=== PATIENT | female | born 1935 | race Caucasian/White ===

== ENCOUNTER 2021-04-19 08:21 | Emergency (ER) | payer MEDICARE ==
[~2021-04-19] VITALS: Ht 152.4 cm; Wt 76.4 kg
[2021-04-19] MEDS ORDERED: VITA200031 PO (08:42)
[2021-04-19] MEDS ORDERED: ATEN25TA PO (08:42)
[2021-04-19] MEDS ORDERED: ASPI81CH33 PO (08:42)
[2021-04-19] MEDS ORDERED: KRIL1CAP6 PO (08:42)
[2021-04-19] MEDS ORDERED: LEVO125T4 PO (08:42)
[2021-04-19] MEDS ORDERED: LOSA50TA28 PO (08:42)
[2021-04-19 09:47] LABS: BASO # 0.1 10^3/uL (0.0-0.2); BASO % 0.9 % (0.0-1.0); EOS # 0.1 10^3/uL (0.0-0.5); EOS % 1.1 % (0.0-3.0); HEMATOCRIT 42.2 % (36.0-47.0); HEMOGLOBIN 13.6 g/dl (12.0-15.5); LYMPH # 2.3 10^3/uL (1.5-5.0); LYMPH % 30.5 % (24.0-44.0); MEAN CORPUSCULAR HEMOGLOBIN 29.8 pg (27.0-33.0); MEAN CORPUSCULAR HGB CONC 32.2 g/dl (32.0-36.5); MEAN CORPUSCULAR VOLUME 92.3 fl (80.0-96.0); MONO # 0.5 10^3/uL (0.0-0.8); MONO % 6.5 % (2.0-8.0); NEUTROPHILS # 4.5 10^3/uL (1.5-8.5); NEUTROPHILS % 60.5 % (36.0-66.0); PLATELET COUNT, AUTOMATED 215 10^3/uL (150-450); RED BLOOD COUNT 4.57 10^6/uL (4.00-5.40); WHITE BLOOD COUNT 7.4 10^3/uL (4.0-10.0)
[2021-04-19 09:59] LABS: ALBUMIN 3.4 GM/DL (3.2-5.2); ALT/SGPT 22 U/L (12-78); BILIRUBIN,DIRECT 0.2 MG/DL (0.0-0.2); BILIRUBIN,TOTAL 0.6 MG/DL (0.2-1.0); BLOOD UREA NITROGEN 25 MG/DL (7-18); CALCIUM LEVEL 9.3 MG/DL (8.8-10.2); CARBON DIOXIDE LEVEL 31 MEQ/L (21-32); CHLORIDE LEVEL 109 MEQ/L (98-107); CREATININE FOR GFR 0.84 MG/DL (0.55-1.30); FREE T4 1.42 NG/DL (0.76-1.46); GLOMERULAR FILTRATION RATE > 60.0 (>32); GLUCOSE, FASTING 92 MG/DL (70-100); LIPASE 140 U/L (73-393); MAGNESIUM LEVEL 2.1 MG/DL (1.8-2.4); POTASSIUM SERUM 4.1 MEQ/L (3.5-5.1); SODIUM LEVEL 144 MEQ/L (136-145); TOTAL PROTEIN 6.9 GM/DL (6.4-8.2)
[2021-04-19] MEDS ORDERED: HOLTER MONITOR (14:52)
[2021-04-19 15:01] VITALS: BP 144/107
== END 2021-04-19 15:44 | disposition home or self-care (01) ==
LOC: M ED 08:21 → EDBD 08:21 → M ED 15:44
DX: G45.9 Transient cerebral ischemic attack, unspecified (principal); R00.2 Palpitations; E03.9 Hypothyroidism, unspecified; I10 Essential (primary) hypertension; Z79.82 Long term (current) use of aspirin; Z79.899 Other long term (current) drug therapy

== ENCOUNTER → 2021-04-26 | Outpatient (CLI) | payer MEDICARE ==
[~2021-04-26] MED LIST: ASPI81CH33 PO; ATEN25TA PO; HOLTER MONITOR; KRIL1CAP6 PO; LEVO125T4 PO; LOSA50TA28 PO; VITA200031 PO
== END ==
LOC: M EKG 09:54
PROVIDERS: ATTEND Emergency Medicine
DX: R00.2 Palpitations (principal)

== ENCOUNTER 2022-03-12 20:21 | Emergency (ER) | payer MEDICARE ==
[~2022-03-12] VITALS: Ht 152.4 cm; Wt 78.6 kg
[2022-03-13 00:01] VITALS: BP 173/73
== END 2022-03-13 00:33 | disposition home or self-care (01) ==
LOC: M ED 20:21
DX: S09.90XA Unspecified injury of head, initial encounter (principal); S40.011A Contusion of right shoulder, initial encounter; S50.01XA Contusion of right elbow, initial encounter; W00.0XXA Fall on same level due to ice and snow, initial encounter; I10 Essential (primary) hypertension; E03.9 Hypothyroidism, unspecified; Z86.73 Personal history of transient ischemic attack (TIA), and cerebral infarction without residual deficits; Z88.8 Allergy status to other drugs, medicaments and biological substances; Z79.01 Long term (current) use of anticoagulants; Z79.811 Long term (current) use of aromatase inhibitors; Z79.82 Long term (current) use of aspirin; Z79.899 Other long term (current) drug therapy

== ENCOUNTER → 2023-05-18 | Outpatient (CLI) | payer MEDICARE ==
[2023-05-18 10:10] VITALS: TEMP 98
[2023-05-18 11:14] LABS: LDH LACTATE DEHYDROGENASE 230 U/L (120-246)
[2023-05-18 11:15] LABS: ALKALINE PHOSPHATASE 87 U/L (46-116); ALT/SGPT 14 U/L (7.0-40); AST/SGOT 22 U/L (<34); BILIRUBIN,TOTAL 0.7 MG/DL (0.3-1.2); BLOOD UREA NITROGEN 17 MG/DL (9-23); CALCIUM LEVEL 8.5 MG/DL (8.3-10.6); CARBON DIOXIDE LEVEL 31 MMOL/L (20-31); CHLORIDE LEVEL 103 MMOL/L (98-107); CREATININE FOR GFR 0.79 MG/DL (0.55-1.30); GLOMERULAR FILTRATION RATE > 60.0 (>32); GLUCOSE, FASTING 89 MG/DL (74-106); POTASSIUM SERUM 4.3 MMOL/L (3.5-5.1); SODIUM LEVEL 138 MMOL/L (136-145)
[2023-05-18 11:44] LABS: PH BODY FLUID 7.519 UNITS (NOT ESTABLISHED); SOURCE, BODY FLUID pH PLEURAL
[2023-05-18 11:49] LABS: PLEURAL FL COLOR RED (COLORLESS); SOURCE, BODY FLUID PLEURAL
[2023-05-18 11:50] LABS: APPEARANCE, BODY FLUID CLOUDY (CLEAR)
[2023-05-18 12:05] LABS: SOURCE, BODY FLUID ALBUMIN PLEURAL
[2023-05-18 12:10] LABS: SOURCE, BODY FLUID GLUCOSE PLEURAL
[2023-05-18 12:11] LABS: LDH, BODY FLUID 361 U/L (NOT ESTABLISHED); SOURCE, BODY FLUID LDH PLEURAL
[2023-05-18 12:12] LABS: AMYLASE, BODY FLUID 63 U/L (NOT ESTABLISHED); SOURCE, BODY FLUID AMYLASE PLEURAL; SOURCE, BODY FLUID TOT PROTEIN PLEURAL; TOTAL PROTEIN, BODY FLUID 3.8 G/DL (NOT ESTABLISHED)
[2023-05-18 12:45] VITALS: BP 143/82; O2SAT 96
== END ==
LOC: M IRPRO 09:53
PROVIDERS: ATTEND Internal Medicine Pulmonary Disease
DX: J90 Pleural effusion, not elsewhere classified (principal)

== ENCOUNTER → 2023-08-28 | Outpatient (CLI) | payer MEDICARE ==
[~2023-08-28] MED LIST changes: +ISOVUE-370 76% 100ML VIAL ONE
== END ==
LOC: M PLAIMG 10:46
PROVIDERS: ATTEND Nurse Practitioner Family
DX: J90 Pleural effusion, not elsewhere classified (principal)
CPT/HCPCS: 71260; Q9967

== ENCOUNTER → 2023-09-18 | Outpatient (CLI) | payer MEDICARE ==
[~2023-09-18] MED LIST changes: -ISOVUE-370 76% 100ML VIAL ONE
== END ==
LOC: M PLARAD 13:15
PROVIDERS: ATTEND Thoracic Surgery (Cardiothoracic Vascular Surgery)
DX: J90 Pleural effusion, not elsewhere classified (principal)
CPT/HCPCS: 78815; A9552

== ENCOUNTER → 2023-10-05 | Outpatient (CLI) | payer MEDICARE ==
[~2023-10-05] MED LIST changes: +ALBU8.5H; +AMIO200T49; +COLA100C5 PO; +ELIQ5TAB; +GABA-1171; +HYDR-3715 PO; +HYDR-4571 PO; +LIDO30CR18 TOP; +MORP15TA2 PO; +MS C15TA8 PO; +MS C30TA6 PO; +OXYC-517; +PROC5TAB57 PO; +TRAM50TA2 PO; +ZYPR2.5T2 PO
== END ==
LOC: M ONCR 14:42
PROVIDERS: ATTEND General Practice
DX: J90 Pleural effusion, not elsewhere classified (principal); M54.6 Pain in thoracic spine; Z77.098 Contact with and (suspected) exposure to other hazardous, chiefly nonmedicinal, chemicals; Z79.82 Long term (current) use of aspirin; Z79.899 Other long term (current) drug therapy; Z80.1 Family history of malignant neoplasm of trachea, bronchus and lung; Z80.7 Family history of other malignant neoplasms of lymphoid, hematopoietic and related tissues; Z88.8 Allergy status to other drugs, medicaments and biological substances; Z90.49 Acquired absence of other specified parts of digestive tract; Z98.51 Tubal ligation status

== ENCOUNTER 2023-10-15 14:20 | Outpatient (RCR) | payer MEDICARE ==
[~2023-10-15 14:20] MED LIST changes: -MORP15TA2 PO; -MS C30TA6 PO
[2023-10-16] MEDS ORDERED: MS C30TA6 PO (07:34)
[2023-10-16] MEDS ORDERED: MORP15TA2 PO (07:37)
[2023-10-22] MEDS ORDERED: MS C15TA8 PO (13:52)
[2023-10-29] MEDS ORDERED: ZYPR2.5T2 PO (08:25)
[2023-10-29] MEDS ORDERED: PROC5TAB57 PO (08:27)
== END 2023-10-24 ==
LOC: M ONCR 14:20
PROVIDERS: ATTEND General Practice
DX: Z51.0 Encounter for antineoplastic radiation therapy (principal); C45.0 Mesothelioma of pleura

== ENCOUNTER → 2023-10-15 | Outpatient (CLI) | payer MEDICARE ==
[~2023-10-15] MED LIST changes: -LIDO30CR18 TOP; -MS C15TA8 PO; -PROC5TAB57 PO; -ZYPR2.5T2 PO
[2023-10-15 17:57] LABS: BASO # 0.1 10^3/uL (0.0-0.2); BASO % 0.8 % (0.0-1.0); EOS # 0.1 10^3/uL (0.0-0.5); EOS % 0.9 % (0.0-3.0); HEMATOCRIT 38.5 % (36.0-47.0); HEMOGLOBIN 12.1 g/dl (12.0-15.5); LYMPH # 2.1 10^3/uL (1.5-5.0); LYMPH % 23.3 % (24.0-44.0); MEAN CORPUSCULAR HEMOGLOBIN 28.1 pg (27.0-33.0); MEAN CORPUSCULAR HGB CONC 31.4 g/dl (32.0-36.5); MEAN CORPUSCULAR VOLUME 89.3 fl (80.0-96.0); MONO # 0.8 10^3/uL (0.0-0.8); MONO % 8.5 % (2.0-8.0); NEUTROPHILS # 6.1 10^3/uL (1.5-8.5); NEUTROPHILS % 66.1 % (36.0-66.0); PLATELET COUNT, AUTOMATED 316 10^3/uL (150-450); RED BLOOD COUNT 4.31 10^6/uL (4.00-5.40); WHITE BLOOD COUNT 9.2 10^3/uL (4.0-10.0)
[2023-10-15 18:33] LABS: INR 1.26; PROTHROMBIN TIME 15.4 SECONDS (12.5-14.5)
== END ==
LOC: M LAB 17:06
PROVIDERS: ATTEND Internal Medicine Hematology & Oncology
DX: J94.9 Pleural condition, unspecified (principal)

== ENCOUNTER → 2023-10-24 | Outpatient (CLI) | payer MEDICARE ==
[~2023-10-24] MED LIST changes: +LIDOCAINE 1% MDV 20ML VIAL As Ordered ONE; +MIDAZOLAM INJ 2MG/2ML VIAL As Ordered ONE; +MORP15TA2 PO; +MS C15TA8 PO; +MS C30TA6 PO; +ceFAZolin 2 GM/D5W 50 ML IV BAG As Ordered ONE; +ceFAZolin SOD 2 GM in IV 1 EA IV ONE; +fentaNYL 100 MCG/2 ML INJECTION As Ordered ONE
[2023-10-24 07:10] VITALS: TEMP 98.4
[2023-10-24 09:04] VITALS: BP 127/61; O2SAT 95
== END ==
LOC: M IRPRO 06:54
PROVIDERS: ATTEND Internal Medicine Hematology & Oncology
DX: R91.8 Other nonspecific abnormal finding of lung field (principal)
CPT/HCPCS: 36561; 99152; 99153; C1769; C1894; J0690; J2250; J3010

== ENCOUNTER 2023-11-08 09:14 | Outpatient (RCR) | payer MEDICARE ==
[~2023-11-08 09:14] MED LIST changes: +LIDO30CR18 TOP; -LIDOCAINE 1% MDV 20ML VIAL As Ordered ONE; -MIDAZOLAM INJ 2MG/2ML VIAL As Ordered ONE; +PROC5TAB57 PO; +ZYPR2.5T2 PO; -ceFAZolin 2 GM/D5W 50 ML IV BAG As Ordered ONE; -ceFAZolin SOD 2 GM in IV 1 EA IV ONE; -fentaNYL 100 MCG/2 ML INJECTION As Ordered ONE
[2023-11-12] MEDS ORDERED: POTA-151 PO (15:26)
[2023-11-12] MEDS ORDERED: MEGE40SU6 PO (15:32)
[2023-11-27] MEDS ORDERED: HALO0.052 TOP (13:52)
[2023-11-27] MEDS ORDERED: FURO40TA2 PO (13:55)
== END 2023-11-24 ==
LOC: M ONCR 09:14
PROVIDERS: ATTEND General Practice
DX: Z51.0 Encounter for antineoplastic radiation therapy (principal); C45.0 Mesothelioma of pleura

== ENCOUNTER → 2023-12-04 | Outpatient (CLI) | payer MEDICARE ==
[~2023-12-04] MED LIST changes: +FURO40TA2 PO; +HALO0.052 TOP; +MEGE40SU6 PO; +POTA-151 PO
== END ==
LOC: M CARPUL 12:42
PROVIDERS: ATTEND Internal Medicine Hematology & Oncology
DX: I51.7 Cardiomegaly (principal); I50.30 Unspecified diastolic (congestive) heart failure; I35.8 Other nonrheumatic aortic valve disorders; I27.20 Pulmonary hypertension, unspecified; I37.1 Nonrheumatic pulmonary valve insufficiency; I36.1 Nonrheumatic tricuspid (valve) insufficiency

== ENCOUNTER → 2024-01-22 | Outpatient (CLI) | payer MEDICARE ==
[~2024-01-22] MED LIST changes: -AMIO200T49; +AMIO200T49 PO; +B-12100010 PO; +BACTDSTA; -ELIQ5TAB; +ELIQ5TAB PO; +FOLI800C PO; -GABA-1171; +GABA-1171 PO; +MUCI600T31 PO; +OMEP1CAP73 PO; +PRED20TA PO; +SPIR-10 PO
== END ==
LOC: M PLAIMG 09:46
PROVIDERS: ATTEND Internal Medicine Pulmonary Disease
DX: J84.9 Interstitial pulmonary disease, unspecified (principal)

== ENCOUNTER → 2024-02-08 | Outpatient (CLI) | payer MEDICARE ==
[~2024-02-08] MED LIST changes: +CHOL125C6 PO; -HALO0.052 TOP; +HALO0.056 TOP; +MAGN400T2 PO; +OCUVCAP PO; +SPIR-10
== END ==
LOC: M ONCR 09:35
PROVIDERS: ATTEND General Practice
DX: C45.0 Mesothelioma of pleura (principal); J70.0 Acute pulmonary manifestations due to radiation; W88.8XXA Exposure to other ionizing radiation, initial encounter; Z57.2 Occupational exposure to dust; Z79.52 Long term (current) use of systemic steroids; Z79.01 Long term (current) use of anticoagulants; Z79.620 Long term (current) use of immunosuppressive biologic; Z79.890 Hormone replacement therapy; Z88.8 Allergy status to other drugs, medicaments and biological substances; Z92.3 Personal history of irradiation; Z99.81 Dependence on supplemental oxygen

== ENCOUNTER → 2024-03-03 | Outpatient (CLI) | payer MEDICARE | LOC: M PLARAD 09:29 | PROVIDERS: ATTEND Internal Medicine Medical Oncology | DX: C45.0 Mesothelioma of pleura (principal) | CPT/HCPCS: 78815; A9552 ==

== ENCOUNTER 2024-03-15 09:28 | Inpatient (IN) | payer MEDICARE ==
[~2024-03-15] VITALS: Ht 152.4 cm; Wt 70.0 kg
[2024-03-15] MEDS: atenoloL 25 MG TAB PO SCH (09:00)
[~2024-03-15 09:28] MED LIST changes: +FLEC25TA PO; +LEVO150T7 PO; +PRED10TA2 PO; -SPIR-10
[2024-03-15 10:37] LABS: BASO % 0.5 % (0.0-1.0); EOS % 0.5 % (0.0-3.0); HEMOGLOBIN 10.4 g/dl (12.0-15.5); LYMPH # 1.3 10^3/uL (1.5-5.0); LYMPH % 17.1 % (24.0-44.0); MEAN CORPUSCULAR HEMOGLOBIN 30.8 pg (27.0-33.0); MEAN CORPUSCULAR HGB CONC 32.5 g/dl (32.0-36.5); MEAN CORPUSCULAR VOLUME 94.7 fl (80.0-96.0); MONO # 0.6 10^3/uL (0.0-0.8); MONO % 7.2 % (2.0-8.0); NEUTROPHILS # 5.5 10^3/uL (1.5-8.5); NEUTROPHILS % 72.3 % (36.0-66.0); PLATELET COUNT, AUTOMATED 163 10^3/uL (150-450); RED BLOOD COUNT 3.38 10^6/uL (4.00-5.40); WHITE BLOOD COUNT 7.7 10^3/uL (4.0-10.0)
[2024-03-15 10:39] LABS: ABG BASE EXCESS 1.5 (-2.0-2.0); ABG HCO3 24.8 MMOL/L (22.0-26.0); ABG O2 SATURATION 98.1 % (95.0-99.0); ABG PARTIAL PRESSURE CO2 34.2 mmHg (35.0-45.0); ABG PARTIAL PRESSURE O2 112.1 mmHg (75.0-100.0); ABG STANDARD HCO3 25.9 MMOL/L. (22.0-26.0); ABG TOTAL CO2 25.8 MMOL/L (23.0-31.0); ABG pH (ARTERIAL) 7.478 UNITS (7.350-7.450)
[2024-03-15] MEDS: NS 500 ML IV ONE (10:39)
[2024-03-15 10:49] LABS: INR 1.39; PARTIAL THROMBOPLASTIN TIME 32.3 SECONDS (24.8-34.2); PROTHROMBIN TIME 17.3 SECONDS (12.5-14.5)
[2024-03-15 10:52] LABS: CK-MB VALUE MASS < 1.0 NG/ML (<3.6)
[2024-03-15 10:56] LABS: FREE T4 1.61 NG/DL (0.89-1.76)
[2024-03-15 11:03] LABS: BLOOD UREA NITROGEN 34 MG/DL (9-23); CALCIUM LEVEL 7.6 MG/DL (8.3-10.6); CARBON DIOXIDE LEVEL 28 MMOL/L (20-31); CHLORIDE LEVEL 102 MMOL/L (98-107); CPK CREATINE PHOSPHOKINASE 27 U/L (34-145); CREATININE FOR GFR 1.11 MG/DL (0.55-1.30); GLOMERULAR FILTRATION RATE 49.6 (>32); GLUCOSE, FASTING 79 MG/DL (74-106); MAGNESIUM LEVEL 1.9 MG/DL (1.8-2.4); POTASSIUM SERUM 4.9 MMOL/L (3.5-5.1); SODIUM LEVEL 135 MMOL/L (136-145)
[2024-03-15 12:06] LABS: MAGNESIUM LEVEL 1.9 MG/DL (1.8-2.4)
[2024-03-15 12:08] LABS: CK-MB VALUE MASS < 1.0 NG/ML (<3.6)
[2024-03-15 12:17] LABS: CPK CREATINE PHOSPHOKINASE 29 U/L (34-145); MB/CK RELATIVE INDEX 3.44 (< OR =4)
[2024-03-15] MEDS ORDERED: CALCCAP4 PO (13:06)
[2024-03-15] MEDS ORDERED: VITAD1000T PO (13:06)
[2024-03-15] MEDS ORDERED: PRED5TA PO (13:16)
[2024-03-15] MEDS ORDERED: HOME MED LIST COMPLETE! XX SCH (13:20)
[2024-03-15] MEDS: fentaNYL 100 MCG/2 ML INJECTION IV PRN (13:23)
[2024-03-15] MEDS: MORPHINE 2 MG/ML 1ML VIAL IV PRN (15:29)
[2024-03-15 15:45] VITALS: BP 120/58; TEMP 101.8; O2SAT 98
[2024-03-15] MEDS ORDERED: ACETAMINOPHEN 500 MG TAB PO SCH (16:00)
[2024-03-15 16:37] LABS: PROCALCITONIN 0.16 ng/ml
[2024-03-15] MEDS: predniSONE 10MG TAB PO ONE (16:47)
[2024-03-15] MEDS: ACETAMINOPHEN *IV* 1,000 MG in IV 1 EA IV ONE (16:47)
[2024-03-15] MEDS: OMEPRAZOLE 20MG CAP PO SCH (17:25)
[2024-03-15] MEDS: LEVOTHYROXINE 150MCG TABLET (0.15MG) PO SCH (17:25)
[2024-03-15] MEDS: FLECAINIDE 50MG TABLET PO SCH (17:31)
[2024-03-15 18:32] VITALS: TEMP 100.2
[2024-03-15 19:49] VITALS: BP 102/54; TEMP 98.4; O2SAT 97
[2024-03-15] MEDS: GABAPENTIN 100 MG CAP PO SCH (20:14)
[2024-03-15] MEDS: ENOXAPARIN 40MG/0.4ML SYRINGE (J1650 PER 10MG) SC ONE (20:14)
[2024-03-15 23:39] VITALS: BP 104/57; TEMP 97.6; O2SAT 96
[2024-03-16] VITALS (11 sets, daily range): BP systolic 100–145; BP diastolic 50–80; TEMP 97–97.9; O2SAT 95–100
[2024-03-16 05:31] LABS: HEMATOCRIT 32.5 % (36.0-47.0); HEMOGLOBIN 10.7 g/dl (12.0-15.5); MEAN CORPUSCULAR HEMOGLOBIN 31.4 pg (27.0-33.0); MEAN CORPUSCULAR HGB CONC 32.9 g/dl (32.0-36.5); MEAN CORPUSCULAR VOLUME 95.3 fl (80.0-96.0); PLATELET COUNT, AUTOMATED 164 10^3/uL (150-450); RED BLOOD COUNT 3.41 10^6/uL (4.00-5.40); WHITE BLOOD COUNT 6.7 10^3/uL (4.0-10.0)
[2024-03-16 05:53] LABS: CALCIUM LEVEL 8.5 MG/DL (8.3-10.6); CREATININE FOR GFR 1.18 MG/DL (0.55-1.30); GLOMERULAR FILTRATION RATE 46.2 (>32); POTASSIUM SERUM 5.8 MMOL/L (3.5-5.1)
[2024-03-16] MEDS ORDERED: fentaNYL 100 MCG/2 ML INJECTION As Ordered ONE (07:09)
[2024-03-16] MEDS ORDERED: LIDOCAINE 2% 100MG/5ML SDV (FOR ANES.) As Ordered ONE (07:09)
[2024-03-16] MEDS ORDERED: propofoL 200 MG/20 ML VIAL As Ordered ONE (07:09)
[2024-03-16] MEDS ORDERED: ONDANSETRON 4MG 2ML VIAL As Ordered ONE (07:09)
[2024-03-16] MEDS ORDERED: KETOROLAC 60MG 2ML VIAL As Ordered ONE (07:09)
[2024-03-16] MEDS ORDERED: ACETAMINOPHEN 1000MG/100ML IV BAG As Ordered ONE (07:10)
[2024-03-16] MEDS ORDERED: HYDROMORPHONE HCL 0.5 MG/ 0.5 ML SYRINGE IV PRN ×2 (07:45→12:40)
[2024-03-16] MEDS ORDERED: fentaNYL 100 MCG/2 ML INJECTION IV PRN ×2 (07:45→12:40)
[2024-03-16] MEDS ORDERED: MEPERIDINE 25 MG/ML 1ML VIAL IV PRN ×2 (07:45→12:40)
[2024-03-16] MEDS ORDERED: ONDANSETRON 4MG 2ML VIAL IV PRN ×2 (07:45→12:40)
[2024-03-16] MEDS ORDERED: oxyCODONE 5MG TAB PO PRN ×2 (07:45→12:40)
[2024-03-16] MEDS: DEXTROSE 50% 50ML SYRINGE IV STA (07:57)
[2024-03-16] MEDS: CALCIUM GLUCONATE 1,000 MG in DEXTROSE 5% (D5W) MINI-BAG PLU 100 ML IV ONE (07:58)
[2024-03-16] MEDS: HumuLIN R (REGULAR) INSULIN (NovoLIN R) **100U/ML** PER UNIT IV STA (07:58)
[2024-03-16] MEDS: FUROSEMIDE 40MG/4ML VIAL IV ONE (07:59)
[2024-03-16] MEDS: predniSONE 2.5 MG TAB PO SCH (10:06)
[2024-03-16] MEDS: HYDROCORTISONE 100MG/2ML VIAL IV ONE (10:56)
[2024-03-16] MEDS: ceFAZolin 2 GM/D5W 50 ML IV BAG As Ordered ONE (11:50)
[2024-03-16] MEDS ORDERED: ePHEDrine SULFATE 25 MG/5 ML(5MG/ML) SYRINGE As Ordered ONE (12:06)
[2024-03-16] MEDS ORDERED: PHENYLephrine 500MCG 5ML (100MCG/ML) SYRINGE As Ordered ONE (12:06)
[2024-03-16] MEDS: TRANEXAMIC ACID 100 MG/ML 10ML VIAL As Ordered ONE (12:24)
[2024-03-16] MEDS: ceFAZolin SOD 1 GM in DEXTROSE 5% (D5W) ADV/MINI-BAG 50 ML IV SCH (20:31)
[2024-03-16] MEDS: oxyCODONE 5MG TAB PO PRN (21:33)
[2024-03-17 03:04] VITALS: BP 106/57; TEMP 97.6; O2SAT 97
[2024-03-17 06:26] LABS: BASO % 0.1 % (0.0-1.0); HEMATOCRIT 31.1 % (36.0-47.0); HEMOGLOBIN 10.3 g/dl (12.0-15.5); LYMPH # 1.3 10^3/uL (1.5-5.0); LYMPH % 12.9 % (24.0-44.0); MEAN CORPUSCULAR HEMOGLOBIN 31.2 pg (27.0-33.0); MEAN CORPUSCULAR HGB CONC 33.1 g/dl (32.0-36.5); MEAN CORPUSCULAR VOLUME 94.2 fl (80.0-96.0); MONO # 0.6 10^3/uL (0.0-0.8); MONO % 6.2 % (2.0-8.0); PLATELET COUNT, AUTOMATED 197 10^3/uL (150-450); WHITE BLOOD COUNT 10.2 10^3/uL (4.0-10.0)
[2024-03-17 06:51] LABS: CALCIUM LEVEL 8.8 MG/DL (8.3-10.6); CREATININE FOR GFR 1.33 MG/DL (0.55-1.30); GLOMERULAR FILTRATION RATE 40.3 (>32); POTASSIUM SERUM 5.4 MMOL/L (3.5-5.1)
[2024-03-17 07:21] VITALS: BP 101/57; TEMP 97.6; O2SAT 99
[2024-03-17] MEDS: ACETAMINOPHEN 325 MG TAB PO PRN (09:18)
[2024-03-17] MEDS: NS (Normal Saline) 0.9% 1,000 ML IV SCH (09:27)
[2024-03-17 11:19] VITALS: BP 111/56; TEMP 97.4; O2SAT 100
[2024-03-17] MEDS: PATIROMER SORBITEX CALCIUM 8.4 GM POWDER PACKET (VELTASSA) PO ONE (11:41)
[2024-03-17] MEDS: HYDROCORTISONE 100MG/2ML VIAL IV ONE (11:42)
[2024-03-17 12:05] LABS: CREATININE,RANDOM URINE 170.1 MG/DL
[2024-03-17 15:39] VITALS: O2SAT 82
[2024-03-17 15:42] VITALS: BP 104/51; TEMP 99.2; O2SAT 98
[2024-03-17 18:24] LABS: CALCIUM LEVEL 8.8 MG/DL (8.3-10.6); CREATININE FOR GFR 1.19 MG/DL (0.55-1.30); GLOMERULAR FILTRATION RATE 45.8 (>32); POTASSIUM SERUM 4.7 MMOL/L (3.5-5.1)
[2024-03-17 19:19] VITALS: BP 104/54; TEMP 97.4; O2SAT 98
[2024-03-17] MEDS ORDERED: ENOXAPARIN 40MG/0.4ML SYRINGE (J1650 PER 10MG) SC SCH (21:00)
[2024-03-17] MEDS: ENOXAPARIN 40MG/0.4ML SYRINGE (J1650 PER 10MG) SC SCH (21:26)
[2024-03-18 03:32] VITALS: BP 110/56; TEMP 97.2; O2SAT 98
[2024-03-18 06:19] LABS: BASO % 0.1 % (0.0-1.0); EOS % 0.2 % (0.0-3.0); HEMATOCRIT 28.4 % (36.0-47.0); HEMOGLOBIN 9.4 g/dl (12.0-15.5); LYMPH # 1.1 10^3/uL (1.5-5.0); LYMPH % 11.9 % (24.0-44.0); MEAN CORPUSCULAR HEMOGLOBIN 31.2 pg (27.0-33.0); MEAN CORPUSCULAR HGB CONC 33.1 g/dl (32.0-36.5); MEAN CORPUSCULAR VOLUME 94.4 fl (80.0-96.0); MONO # 0.7 10^3/uL (0.0-0.8); NEUTROPHILS % 77.9 % (36.0-66.0); PLATELET COUNT, AUTOMATED 180 10^3/uL (150-450); RED BLOOD COUNT 3.01 10^6/uL (4.00-5.40)
[2024-03-18 06:46] LABS: CALCIUM LEVEL 8.2 MG/DL (8.3-10.6); CREATININE FOR GFR 0.97 MG/DL (0.55-1.30); POTASSIUM SERUM 4.8 MMOL/L (3.5-5.1)
[2024-03-18 07:30] VITALS: BP 127/57; TEMP 98.3; O2SAT 97
[2024-03-18] MEDS ORDERED: ENOXAPARIN 40MG/0.4ML SYRINGE (J1650 PER 10MG) SC SCH (09:00)
[2024-03-18 09:18] VITALS: BP 127/57
[2024-03-18 11:21] VITALS: BP 129/60; TEMP 98.7; O2SAT 96
== END 2024-03-18 15:33 | DRG 481 ==
LOC: M ED 09:28 → EDBD 09:28 → M ED INP 13:36 → M PCU 15:50
PROVIDERS: ADMIT Internal Medicine; ATTEND Internal Medicine
PROC: 0QS604Z Reposition Right Upper Femur with Internal Fixation Device, Open Approach (ICD-10-PCS; principal; 2024-03-16 08:00)
DX: S72.011A Unspecified intracapsular fracture of right femur, initial encounter for closed fracture (principal); J96.11 Chronic respiratory failure with hypoxia; N17.9 Acute kidney failure, unspecified; I48.91 Unspecified atrial fibrillation; I10 Essential (primary) hypertension; K21.9 Gastro-esophageal reflux disease without esophagitis; J44.9 Chronic obstructive pulmonary disease, unspecified; G62.9 Polyneuropathy, unspecified; E03.9 Hypothyroidism, unspecified; W06.XXXA Fall from bed, initial encounter; Y92.013 Bedroom of single-family (private) house as the place of occurrence of the external cause; Y93.89 Activity, other specified; Y99.8 Other external cause status; C45.7 Mesothelioma of other sites; E87.5 Hyperkalemia; R50.9 Fever, unspecified; R33.9 Retention of urine, unspecified; Z79.69 Long term (current) use of other immunomodulators and immunosuppressants; Z79.52 Long term (current) use of systemic steroids; Z79.01 Long term (current) use of anticoagulants; Z79.890 Hormone replacement therapy; Z79.899 Other long term (current) drug therapy; Z90.49 Acquired absence of other specified parts of digestive tract; Z88.8 Allergy status to other drugs, medicaments and biological substances

== ENCOUNTER 2024-03-18 11:19 | Inpatient (IN) | payer MEDICARE ==
[~2024-03-18] VITALS: Ht 152.4 cm; Wt 71.3 kg
[~2024-03-18 11:19] MED LIST changes: +CALCCAP4 PO; +PRED5TA PO; +VITAD1000T PO
[2024-03-18] MEDS ORDERED: BISACODYL 5MG TAB PO PRN (11:35)
[2024-03-18] MEDS ORDERED: SIMETHICONE 80MG CHEW TAB PO PRN (11:35)
[2024-03-18] MEDS ORDERED: MAALOX 30 ML SUSP *UDC PO PRN (11:35)
[2024-03-18] MEDS ORDERED: MOM 30ML SUSPENSION UDC PO PRN (11:35)
[2024-03-18] MEDS ORDERED: ONDANSETRON 4MG TAB PO PRN (11:35)
[2024-03-18] MEDS ORDERED: MIRALAX *UNIT DOSE* 17GM PACKET PO PRN (11:35)
[2024-03-18 15:40] VITALS: BP 120/58; TEMP 97.9; O2SAT 99
[2024-03-18] MEDS ORDERED: PILL CUTTER 1 EACH XX PRN (16:10)
[2024-03-18 20:00] VITALS: BP 132/79; TEMP 97.4; O2SAT 95
[2024-03-18] MEDS: SENNA 8.6 MG TAB (SENOKOT) PO SCH (20:21)
[2024-03-18] MEDS: DOCUSATE SODIUM 100MG CAPSULE PO SCH (20:21)
[2024-03-18] MEDS: GABAPENTIN 100 MG CAP PO SCH (20:23)
[2024-03-18] MEDS: ACETAMINOPHEN 500 MG TAB PO SCH (20:23)
[2024-03-18] MEDS: ENOXAPARIN 30MG/0.3ML SYRINGE (J1650 PER 10MG) SC SCH (20:24)
[2024-03-18] MEDS: FLECAINIDE 50MG TABLET PO SCH (20:25)
[2024-03-19 03:58] VITALS: BP 118/55; TEMP 97.6; O2SAT 98
[2024-03-19] MEDS: LEVOTHYROXINE 150MCG TABLET (0.15MG) PO SCH (05:38)
[2024-03-19 07:40] LABS: BASO # 0.1 10^3/uL (0.0-0.2); BASO % 0.4 % (0.0-1.0); EOS # 0.1 10^3/uL (0.0-0.5); EOS % 0.9 % (0.0-3.0); HEMOGLOBIN 10.6 g/dl (12.0-15.5); LYMPH # 2.1 10^3/uL (1.5-5.0); LYMPH % 17.8 % (24.0-44.0); MEAN CORPUSCULAR HEMOGLOBIN 31.1 pg (27.0-33.0); MEAN CORPUSCULAR HGB CONC 32.1 g/dl (32.0-36.5); MEAN CORPUSCULAR VOLUME 96.8 fl (80.0-96.0); MONO # 0.8 10^3/uL (0.0-0.8); MONO % 7.1 % (2.0-8.0); NEUTROPHILS # 8.1 10^3/uL (1.5-8.5); NEUTROPHILS % 69.8 % (36.0-66.0); PLATELET COUNT, AUTOMATED 231 10^3/uL (150-450); RED BLOOD COUNT 3.41 10^6/uL (4.00-5.40); WHITE BLOOD COUNT 11.7 10^3/uL (4.0-10.0)
[2024-03-19 08:08] LABS: ALBUMIN 2.7 G/DL (3.2-5.2); BILIRUBIN,TOTAL 0.5 MG/DL (0.3-1.2); CALCIUM LEVEL 8.8 MG/DL (8.3-10.6); CREATININE FOR GFR 1.07 MG/DL (0.55-1.30); GLOMERULAR FILTRATION RATE 51.8 (>32); POTASSIUM SERUM 4.6 MMOL/L (3.5-5.1); TOTAL PROTEIN 5.2 G/DL (5.7-8.2)
[2024-03-19] MEDS: OMEPRAZOLE 20MG CAP PO SCH (09:13)
[2024-03-19] MEDS: CALCIUM/VITAMIN D 500 MG TAB PO SCH (09:13)
[2024-03-19] MEDS: predniSONE 5 MG TAB PO SCH (09:13)
[2024-03-19] MEDS: oxyCODONE 5MG TAB PO PRN (09:14)
[2024-03-19] MEDS: APIXABAN 5 MG TAB (ELIQUIS) PO SCH (09:14)
[2024-03-19] MEDS: atenoloL 25 MG TAB PO SCH (09:14)
[2024-03-19 12:27] VITALS: BP 114/58; TEMP 98.4; O2SAT 95
[2024-03-19 20:00] VITALS: BP 105/51; TEMP 98; O2SAT 99
[2024-03-20 04:00] VITALS: BP 116/58; TEMP 97.2; O2SAT 98
[2024-03-20 12:00] VITALS: BP 109/57; TEMP 97.8; O2SAT 94
[2024-03-20 20:18] VITALS: BP 133/63; TEMP 97.5; O2SAT 98
[2024-03-21 04:00] VITALS: BP 128/58; TEMP 97.3; O2SAT 93
[2024-03-21 06:24] LABS: HEMATOCRIT 29.7 % (36.0-47.0); HEMOGLOBIN 9.6 g/dl (12.0-15.5); MEAN CORPUSCULAR HEMOGLOBIN 30.6 pg (27.0-33.0); MEAN CORPUSCULAR HGB CONC 32.3 g/dl (32.0-36.5); MEAN CORPUSCULAR VOLUME 94.6 fl (80.0-96.0); PLATELET COUNT, AUTOMATED 193 10^3/uL (150-450); RED BLOOD COUNT 3.14 10^6/uL (4.00-5.40); WHITE BLOOD COUNT 7.2 10^3/uL (4.0-10.0)
[2024-03-21 12:00] VITALS: TEMP 98.7; O2SAT 96
[2024-03-21 19:51] VITALS: BP 149/67; TEMP 98.3; O2SAT 95
[2024-03-22 04:42] VITALS: BP 113/55; TEMP 97.8; O2SAT 97
[2024-03-22 12:36] VITALS: BP 111/54; TEMP 98; O2SAT 95
[2024-03-22 20:22] VITALS: BP 139/62; TEMP 97.8; O2SAT 99
[2024-03-23 04:36] VITALS: BP 114/63; TEMP 97; O2SAT 99
[2024-03-23 08:10] VITALS: BP 116/50
[2024-03-23 12:00] VITALS: BP 102/57; TEMP 98; O2SAT 96
[2024-03-23 19:53] VITALS: BP 131/63; TEMP 97.8; O2SAT 68
[2024-03-24 03:36] VITALS: BP 163/75; TEMP 97.5; O2SAT 94
[2024-03-24 04:50] VITALS: BP 118/62
[2024-03-24 07:15] LABS: HEMATOCRIT 30.1 % (36.0-47.0); HEMOGLOBIN 9.8 g/dl (12.0-15.5); MEAN CORPUSCULAR HEMOGLOBIN 31.1 pg (27.0-33.0); MEAN CORPUSCULAR HGB CONC 32.6 g/dl (32.0-36.5); MEAN CORPUSCULAR VOLUME 95.6 fl (80.0-96.0); PLATELET COUNT, AUTOMATED 178 10^3/uL (150-450); RED BLOOD COUNT 3.15 10^6/uL (4.00-5.40); WHITE BLOOD COUNT 6.5 10^3/uL (4.0-10.0)
[2024-03-24] MEDS: MIDODRINE 5 MG TAB PO ONE (11:46)
[2024-03-24 12:00] VITALS: BP 112/55; TEMP 98.2; O2SAT 93
[2024-03-24] MEDS ORDERED: MIDODRINE 5 MG TAB PO PRN (12:25)
[2024-03-24 20:00] VITALS: BP 105/51; TEMP 97.2; O2SAT 100
[2024-03-25 04:00] VITALS: BP 119/58; TEMP 97.5; O2SAT 96
[2024-03-25 06:43] LABS: BASO % 0.6 % (0.0-1.0); EOS # 0.1 10^3/uL (0.0-0.5); EOS % 1.1 % (0.0-3.0); HEMATOCRIT 30.9 % (36.0-47.0); HEMOGLOBIN 9.9 g/dl (12.0-15.5); LYMPH # 0.8 10^3/uL (1.5-5.0); LYMPH % 13.4 % (24.0-44.0); MEAN CORPUSCULAR HEMOGLOBIN 30.4 pg (27.0-33.0); MEAN CORPUSCULAR VOLUME 94.8 fl (80.0-96.0); MONO # 0.4 10^3/uL (0.0-0.8); MONO % 6.7 % (2.0-8.0); NEUTROPHILS # 4.4 10^3/uL (1.5-8.5); NEUTROPHILS % 70.3 % (36.0-66.0); PLATELET COUNT, AUTOMATED 187 10^3/uL (150-450); RED BLOOD COUNT 3.26 10^6/uL (4.00-5.40); WHITE BLOOD COUNT 6.3 10^3/uL (4.0-10.0)
[2024-03-25 07:12] LABS: BLOOD UREA NITROGEN 24 MG/DL (9-23); CALCIUM LEVEL 8.9 MG/DL (8.3-10.6); CARBON DIOXIDE LEVEL 31 MMOL/L (20-31); CHLORIDE LEVEL 98 MMOL/L (98-107); CREATININE FOR GFR 0.88 MG/DL (0.55-1.30); GLOMERULAR FILTRATION RATE > 60.0 (>32); GLUCOSE, FASTING 67 MG/DL (74-106); POTASSIUM SERUM 4.3 MMOL/L (3.5-5.1); SODIUM LEVEL 135 MMOL/L (136-145)
[2024-03-25 12:00] VITALS: BP 128/59; TEMP 97.2; O2SAT 95
[2024-03-25 20:00] VITALS: BP 130/58; TEMP 97.7; O2SAT 99
[2024-03-26 04:00] VITALS: BP 125/59; TEMP 97; O2SAT 97
[2024-03-26 12:00] VITALS: BP 114/75; TEMP 96.5; O2SAT 97
[2024-03-26] MEDS ORDERED: ACET-683 PO (13:00)
[2024-03-26 20:16] VITALS: BP 140/60; TEMP 96.8; O2SAT 98
[2024-03-27 04:15] VITALS: BP 143/63; TEMP 98.8; O2SAT 97
[2024-03-27 07:16] VITALS: BP 117/58
[2024-03-27 12:00] VITALS: BP 104/59; TEMP 98.1; O2SAT 93
[2024-03-27 20:27] VITALS: BP 151/73; TEMP 95.9; O2SAT 95
[2024-03-28 03:37] VITALS: BP 144/63; TEMP 97.6; O2SAT 92
[2024-03-28 08:33] VITALS: BP 148/63
[2024-04-15] MEDS ORDERED: LEVO150T7 PO (10:13)
== END 2024-03-28 12:15 | disposition home or self-care (01) | DRG 560 ==
LOC: M PM&R 15:40
PROVIDERS: ADMIT Physical Medicine & Rehabilitation; ATTEND Physical Medicine & Rehabilitation
DX: S72.011D Unspecified intracapsular fracture of right femur, subsequent encounter for closed fracture with routine healing (principal); J96.11 Chronic respiratory failure with hypoxia; N17.9 Acute kidney failure, unspecified; J70.0 Acute pulmonary manifestations due to radiation; I48.91 Unspecified atrial fibrillation; I10 Essential (primary) hypertension; K21.9 Gastro-esophageal reflux disease without esophagitis; J44.9 Chronic obstructive pulmonary disease, unspecified; G62.9 Polyneuropathy, unspecified; E03.9 Hypothyroidism, unspecified; R33.9 Retention of urine, unspecified; D72.829 Elevated white blood cell count, unspecified; I95.9 Hypotension, unspecified; Z74.09 Other reduced mobility; Z74.1 Need for assistance with personal care; R53.1 Weakness; C45.7 Mesothelioma of other sites; Z92.3 Personal history of irradiation; Z90.49 Acquired absence of other specified parts of digestive tract; Z79.01 Long term (current) use of anticoagulants; Z79.890 Hormone replacement therapy; Z79.899 Other long term (current) drug therapy; Z88.8 Allergy status to other drugs, medicaments and biological substances; Z79.69 Long term (current) use of other immunomodulators and immunosuppressants; Z79.52 Long term (current) use of systemic steroids

== ENCOUNTER → 2024-04-02 | Outpatient (CLI) | payer MEDICARE ==
[~2024-04-02] MED LIST changes: +ACET-683 PO
== END ==
LOC: M SOG 07:56
PROVIDERS: ATTEND Physician Assistant
DX: S72.091A Other fracture of head and neck of right femur, initial encounter for closed fracture (principal); W18.30XA Fall on same level, unspecified, initial encounter; Y92.009 Unspecified place in unspecified non-institutional (private) residence as the place of occurrence of the external cause

== ENCOUNTER → 2024-04-22 | Outpatient (CLI) | payer MEDICARE | LOC: M SOG 08:08 | PROVIDERS: ATTEND Physician Assistant | DX: S72.091A Other fracture of head and neck of right femur, initial encounter for closed fracture (principal); W18.30XA Fall on same level, unspecified, initial encounter; Y92.009 Unspecified place in unspecified non-institutional (private) residence as the place of occurrence of the external cause ==

== ENCOUNTER 2024-05-09 08:21 | Inpatient (IN) | payer MEDICARE ==
[~2024-05-09] VITALS: Ht 152.4 cm; Wt 65.9 kg
[~2024-05-09 08:21] MED LIST changes: +MEGE400O7 PO; -MEGE40SU6 PO; +PRED25TA PO
[2024-05-09 09:10] LABS: HEMATOCRIT 40.2 % (36.0-47.0); HEMOGLOBIN 13.6 g/dl (12.0-15.5); MEAN CORPUSCULAR HEMOGLOBIN 30.7 pg (27.0-33.0); MEAN CORPUSCULAR HGB CONC 33.8 g/dl (32.0-36.5); MEAN CORPUSCULAR VOLUME 90.7 fl (80.0-96.0); PLATELET COUNT, AUTOMATED 217 10^3/uL (150-450); RED BLOOD COUNT 4.43 10^6/uL (4.00-5.40); WHITE BLOOD COUNT 10.8 10^3/uL (4.0-10.0)
[2024-05-09 09:42] LABS: CALCIUM LEVEL 10.6 MG/DL (8.3-10.6); CREATININE FOR GFR 1.15 MG/DL (0.55-1.30); GLOMERULAR FILTRATION RATE 47.6 (>32)
[2024-05-09 09:45] LABS: THYROID STIMULATING HORMONE 0.475 uIU/ML (0.55-4.78)
[2024-05-09 10:15] LABS: KETONE, URINE AUTO RFX NEGATIVE (NEGATIVE); LEUKOCYTE ESTERASE UR AUTO RFX NEGATIVE (NEGATIVE); MUCUS, URINE RFX SMALL (NEGATIVE); NITRITE, URINE AUTO RFX NEGATIVE (NEGATIVE); RBC, URINE AUTO RFX 2 /HPF (0-3); SQUAM EPITHELIAL CELL UR AURFX 0 /HPF (0-6); WBC, URINE AUTO RFX 10 /HPF (0-3)
[2024-05-09] MEDS ORDERED: LEVO150T7 PO (10:42)
[2024-05-09] MEDS ORDERED: ACET-683 PO (10:42)
[2024-05-09] MEDS ORDERED: MEGE400O7 PO (10:42)
[2024-05-09] MEDS ORDERED: HOME MED LIST COMPLETE! XX SCH (10:45)
[2024-05-09] MEDS: cefTRIAXone SOD 1 GM in DEXTROSE 5% (D5W) ADV/MINI-BAG 50 ML IV ONE (11:17)
[2024-05-09] MEDS: DOXYCYCLINE HYCLATE 100MG TABLET PO ONE (11:17)
[2024-05-09] MEDS ORDERED: ACETAMINOPHEN 500 MG TAB PO PRN (12:35)
[2024-05-09 12:51] LABS: PROCALCITONIN 0.39 ng/ml
[2024-05-09] MEDS: METOCLOPRAMIDE INJ 10MG/2ML VIAL IV ONE (12:57)
[2024-05-09 13:25] LABS: ABG BASE EXCESS 2.7 (-2.0-2.0); ABG HCO3 25.9 MMOL/L (22.0-26.0); ABG PARTIAL PRESSURE CO2 35.6 mmHg (35.0-45.0); ABG PARTIAL PRESSURE O2 61.4 mmHg (75.0-100.0); ABG STANDARD HCO3 26.7 MMOL/L. (22.0-26.0)
[2024-05-09] MEDS: SPIRONOLACTONE 50 MG TAB PO SCH (14:31)
[2024-05-09] MEDS: OMEPRAZOLE 20MG CAP PO SCH (14:31)
[2024-05-09] MEDS: AZITHROMYCIN 250MG TABLET PO SCH (14:31)
[2024-05-09] MEDS: atenoloL 25 MG TAB PO SCH (14:32)
[2024-05-09] MEDS: predniSONE 2.5 MG TAB PO SCH (14:38)
[2024-05-09 17:20] VITALS: BP 115/56; TEMP 99.2; O2SAT 86
[2024-05-09 19:20] VITALS: BP 114/57; TEMP 97.7; O2SAT 92
[2024-05-09] MEDS: GABAPENTIN 100 MG CAP PO SCH (20:41)
[2024-05-09] MEDS: FLECAINIDE 50MG TABLET PO SCH (20:42)
[2024-05-09] MEDS: APIXABAN 5 MG TAB (ELIQUIS) PO SCH (20:42)
[2024-05-09 23:54] VITALS: BP 112/55; TEMP 98.1; O2SAT 90
[2024-05-10] VITALS (7 sets, daily range): BP systolic 109–137; BP diastolic 49–65; TEMP 96.8–98.7; O2SAT 85–92
[2024-05-10] MEDS: LEVOTHYROXINE 150MCG TABLET (0.15MG) PO SCH (05:14)
[2024-05-10 07:50] LABS: HEMATOCRIT 39.8 % (36.0-47.0); HEMOGLOBIN 13.1 g/dl (12.0-15.5); MEAN CORPUSCULAR HEMOGLOBIN 30.1 pg (27.0-33.0); MEAN CORPUSCULAR HGB CONC 32.9 g/dl (32.0-36.5); MEAN CORPUSCULAR VOLUME 91.5 fl (80.0-96.0); PLATELET COUNT, AUTOMATED 247 10^3/uL (150-450); RED BLOOD COUNT 4.35 10^6/uL (4.00-5.40); WHITE BLOOD COUNT 13.3 10^3/uL (4.0-10.0)
[2024-05-10 08:02] LABS: ALBUMIN 2.5 G/DL (3.2-5.2); BILIRUBIN,TOTAL 0.6 MG/DL (0.3-1.2); CALCIUM LEVEL 10.7 MG/DL (8.3-10.6); CREATININE FOR GFR 1.22 MG/DL (0.55-1.30); GLOMERULAR FILTRATION RATE 44.5 (>32); POTASSIUM SERUM 5.1 MMOL/L (3.5-5.1); TOTAL PROTEIN 5.1 G/DL (5.7-8.2)
[2024-05-10] MEDS: MEGESTROL 400MG 10ML SUSP ORAL SYRINGE *DRAW UP EXACT DOSE PO SCH (11:00)
[2024-05-10] MEDS: cefTRIAXone SOD 1 GM in DEXTROSE 5% (D5W) ADV/MINI-BAG 50 ML IV SCH (11:12)
[2024-05-11] VITALS (13 sets, daily range): BP systolic 114–127; BP diastolic 55–64; TEMP 96.8–97.8; O2SAT 79–96
[2024-05-11] MEDS: IPRATROPIUM 0.5MG/ALBUTEROL 2.5MG INH SOL UD 3ML (DUONEB) NEB PRN (08:47)
[2024-05-11 09:27] LABS: BASO # 0.1 10^3/uL (0.0-0.2); BASO % 0.5 % (0.0-1.0); EOS % 0.3 % (0.0-3.0); HEMATOCRIT 40.9 % (36.0-47.0); HEMOGLOBIN 13.4 g/dl (12.0-15.5); LYMPH % 13.2 % (24.0-44.0); MEAN CORPUSCULAR HEMOGLOBIN 29.8 pg (27.0-33.0); MEAN CORPUSCULAR HGB CONC 32.8 g/dl (32.0-36.5); MEAN CORPUSCULAR VOLUME 91.1 fl (80.0-96.0); MONO # 1.1 10^3/uL (0.0-0.8); MONO % 7.6 % (2.0-8.0); NEUTROPHILS # 11.4 10^3/uL (1.5-8.5); NEUTROPHILS % 77.2 % (36.0-66.0); PLATELET COUNT, AUTOMATED 261 10^3/uL (150-450); RED BLOOD COUNT 4.49 10^6/uL (4.00-5.40); WHITE BLOOD COUNT 14.7 10^3/uL (4.0-10.0)
[2024-05-11 10:22] LABS: ALBUMIN 2.3 G/DL (3.2-5.2); BILIRUBIN,TOTAL 0.6 MG/DL (0.3-1.2); CALCIUM LEVEL 10.6 MG/DL (8.3-10.6); CREATININE FOR GFR 1.26 MG/DL (0.55-1.30); GLOMERULAR FILTRATION RATE 42.9 (>32); POTASSIUM SERUM 4.7 MMOL/L (3.5-5.1); TOTAL PROTEIN 5.3 G/DL (5.7-8.2)
[2024-05-11 11:36] LABS: ABG BASE EXCESS 3.7 (-2.0-2.0); ABG HCO3 27.5 MMOL/L (22.0-26.0); ABG O2 SATURATION 97.5 % (95.0-99.0); ABG PARTIAL PRESSURE CO2 38.8 mmHg (35.0-45.0); ABG PARTIAL PRESSURE O2 92.6 mmHg (75.0-100.0); ABG STANDARD HCO3 27.7 MMOL/L. (22.0-26.0); ABG TOTAL CO2 28.7 MMOL/L (23.0-31.0); ABG pH (ARTERIAL) 7.468 UNITS (7.350-7.450)
[2024-05-11] MEDS: methylPREDNISolone 125MG 2ML VIAL IV STA (12:50)
[2024-05-11] MEDS: IPRATROPIUM 0.5MG/ALBUTEROL 2.5MG INH SOL UD 3ML (DUONEB) NEB SCH (13:33)
[2024-05-11] MEDS: methylPREDNISolone 125MG 2ML VIAL IV SCH (21:38)
[2024-05-12 03:21] VITALS: BP 118/60; TEMP 97.5; O2SAT 99
[2024-05-12 08:00] VITALS: BP 124/72; TEMP 97; O2SAT 98
[2024-05-12 12:00] VITALS: BP 112/70; TEMP 97; O2SAT 98
[2024-05-12 16:00] VITALS: BP 129/61; TEMP 96.9; O2SAT 95
[2024-05-12 20:39] VITALS: BP 123/59; TEMP 97.5; O2SAT 95
[2024-05-12 23:34] VITALS: BP 124/60; TEMP 97.2; O2SAT 96
[2024-05-13] VITALS (8 sets, daily range): BP systolic 108–150; BP diastolic 53–69; TEMP 97.1–98.3; O2SAT 96–100
[2024-05-13 08:38] LABS: HEMATOCRIT 40.8 % (36.0-47.0); HEMOGLOBIN 13.4 g/dl (12.0-15.5); MEAN CORPUSCULAR HEMOGLOBIN 30.1 pg (27.0-33.0); MEAN CORPUSCULAR HGB CONC 32.8 g/dl (32.0-36.5); MEAN CORPUSCULAR VOLUME 91.7 fl (80.0-96.0); PLATELET COUNT, AUTOMATED 275 10^3/uL (150-450); RED BLOOD COUNT 4.45 10^6/uL (4.00-5.40); WHITE BLOOD COUNT 17.7 10^3/uL (4.0-10.0)
[2024-05-13 08:56] LABS: ERYTHROCYTE SEDIMENTATION RATE 43 mm/hr (0-30)
[2024-05-13 09:13] LABS: C REACTIVE PROTEIN QUANTITATIV 5.09 MG/DL (<1.0); CALCIUM LEVEL 11.4 MG/DL (8.3-10.6); CREATININE FOR GFR 1.19 MG/DL (0.55-1.30); GLOMERULAR FILTRATION RATE 45.8 (>32); POTASSIUM SERUM 4.6 MMOL/L (3.5-5.1)
[2024-05-13 09:17] LABS: PROCALCITONIN 0.18 ng/ml
[2024-05-13] MEDS: PIPERACILLIN/TAZOBACTAM SOD 3.375 GM in DEXTROSE 5% (D5W) ADV/MINI-BAG 50 ML IV SCH (12:59)
[2024-05-13] MEDS ORDERED: GLUCAGON INJ 1MG VIAL SC PRN (13:30)
[2024-05-13] MEDS ORDERED: GLUCOSE 4 GM CHEW PO PRN (13:30)
[2024-05-13] MEDS ORDERED: DEXTROSE 50% 50ML SYRINGE IV PRN (13:30)
[2024-05-13 14:04] LABS: IONIZED CALCIUM 5.8 MG/DL (4.5-5.3)
[2024-05-13 14:38] LABS: FREE T4 3.47 NG/DL (0.89-1.76)
[2024-05-14] VITALS (17 sets, daily range): BP systolic 95–122; BP diastolic 52–69; TEMP 97–98.5; O2SAT 85–98
[2024-05-14 06:21] LABS: HEMATOCRIT 37.2 % (36.0-47.0); HEMOGLOBIN 11.9 g/dl (12.0-15.5); MEAN CORPUSCULAR HEMOGLOBIN 29.2 pg (27.0-33.0); MEAN CORPUSCULAR VOLUME 91.2 fl (80.0-96.0); PLATELET COUNT, AUTOMATED 246 10^3/uL (150-450); RED BLOOD COUNT 4.08 10^6/uL (4.00-5.40); WHITE BLOOD COUNT 16.3 10^3/uL (4.0-10.0)
[2024-05-14 06:30] LABS: ALBUMIN 2.5 G/DL (3.2-5.2); BILIRUBIN,TOTAL 0.3 MG/DL (0.3-1.2); CALCIUM LEVEL 10.9 MG/DL (8.3-10.6); CREATININE FOR GFR 1.23 MG/DL (0.55-1.30); GLOMERULAR FILTRATION RATE 44.1 (>32); POTASSIUM SERUM 4.6 MMOL/L (3.5-5.1); TOTAL PROTEIN 5.2 G/DL (5.7-8.2)
[2024-05-14] MEDS: methylPREDNISolone 125MG 2ML VIAL IV SCH (08:37)
[2024-05-15] VITALS (14 sets, daily range): BP systolic 102–118; BP diastolic 55–59; TEMP 97.6–97.8; O2SAT 96–99
[2024-05-15] MEDS ORDERED: LEVOTHYROXINE 100MCG TABLET (0.1MG) PO SCH (06:00)
[2024-05-15 07:55] LABS: HEMATOCRIT 36.5 % (36.0-47.0); HEMOGLOBIN 11.9 g/dl (12.0-15.5); MEAN CORPUSCULAR HEMOGLOBIN 29.8 pg (27.0-33.0); MEAN CORPUSCULAR HGB CONC 32.6 g/dl (32.0-36.5); MEAN CORPUSCULAR VOLUME 91.5 fl (80.0-96.0); PLATELET COUNT, AUTOMATED 243 10^3/uL (150-450); RED BLOOD COUNT 3.99 10^6/uL (4.00-5.40); WHITE BLOOD COUNT 17.9 10^3/uL (4.0-10.0)
[2024-05-15 08:31] LABS: ALBUMIN 2.5 G/DL (3.2-5.2); BILIRUBIN,TOTAL 0.5 MG/DL (0.3-1.2); CALCIUM LEVEL 10.6 MG/DL (8.3-10.6); CREATININE FOR GFR 1.15 MG/DL (0.55-1.30); GLOMERULAR FILTRATION RATE 47.6 (>32); POTASSIUM SERUM 4.6 MMOL/L (3.5-5.1); TOTAL PROTEIN 5.2 G/DL (5.7-8.2)
[2024-05-15] MEDS: predniSONE 20 MG TAB PO SCH (08:48)
[2024-05-15] MEDS ORDERED: CEPACOL LOZENGE PO PRN (10:50)
[2024-05-15 11:05] LABS: C REACTIVE PROTEIN QUANTITATIV 1.16 MG/DL (<1.0)
[2024-05-15 11:17] LABS: PROCALCITONIN 0.08 ng/ml
[2024-05-15 11:35] LABS: ERYTHROCYTE SEDIMENTATION RATE 18 mm/hr (0-30)
[2024-05-15 12:11] LABS: BASO % 0.2 % (0.0-1.0); LYMPH # 0.7 10^3/uL (1.5-5.0); LYMPH % 3.7 % (24.0-44.0); MONO # 0.9 10^3/uL (0.0-0.8); MONO % 4.9 % (2.0-8.0); NEUTROPHILS # 15.8 10^3/uL (1.5-8.5); NEUTROPHILS % 89.2 % (36.0-66.0)
[2024-05-16] VITALS (9 sets, daily range): BP systolic 111–124; BP diastolic 53–66; TEMP 97–98; O2SAT 93–98
[2024-05-16 06:21] LABS: HEMOGLOBIN 11.2 g/dl (12.0-15.5); MEAN CORPUSCULAR HEMOGLOBIN 29.6 pg (27.0-33.0); MEAN CORPUSCULAR HGB CONC 32.9 g/dl (32.0-36.5); MEAN CORPUSCULAR VOLUME 89.9 fl (80.0-96.0); PLATELET COUNT, AUTOMATED 239 10^3/uL (150-450); RED BLOOD COUNT 3.78 10^6/uL (4.00-5.40); WHITE BLOOD COUNT 14.7 10^3/uL (4.0-10.0)
[2024-05-16 06:38] LABS: THYROID STIMULATING HORMONE 0.075 uIU/ML (0.55-4.78)
[2024-05-16 06:39] LABS: FREE T4 2.94 NG/DL (0.89-1.76)
[2024-05-16 06:44] LABS: ALBUMIN 2.3 G/DL (3.2-5.2); BILIRUBIN,TOTAL 0.5 MG/DL (0.3-1.2); CALCIUM LEVEL 10.3 MG/DL (8.3-10.6); TOTAL PROTEIN 4.8 G/DL (5.7-8.2)
[2024-05-17 04:00] VITALS: BP 118/53; TEMP 97; O2SAT 99
[2024-05-17 06:08] LABS: HEMATOCRIT 35.9 % (36.0-47.0); HEMOGLOBIN 11.6 g/dl (12.0-15.5); MEAN CORPUSCULAR HEMOGLOBIN 29.4 pg (27.0-33.0); MEAN CORPUSCULAR HGB CONC 32.3 g/dl (32.0-36.5); MEAN CORPUSCULAR VOLUME 90.9 fl (80.0-96.0); PLATELET COUNT, AUTOMATED 236 10^3/uL (150-450); RED BLOOD COUNT 3.95 10^6/uL (4.00-5.40); WHITE BLOOD COUNT 15.3 10^3/uL (4.0-10.0)
[2024-05-17 06:42] LABS: ALBUMIN 2.5 G/DL (3.2-5.2); ALKALINE PHOSPHATASE 40 U/L (35-104); ALT/SGPT 64 U/L (7.0-40); AST/SGOT 47 U/L (<34); BILIRUBIN,TOTAL 0.6 MG/DL (0.3-1.2); BLOOD UREA NITROGEN 48 MG/DL (9-23); CALCIUM LEVEL 10.3 MG/DL (8.3-10.6); CARBON DIOXIDE LEVEL 30 MMOL/L (20-31); CHLORIDE LEVEL 102 MMOL/L (98-107); CREATININE FOR GFR 0.84 MG/DL (0.55-1.30); GLOMERULAR FILTRATION RATE > 60.0 (>32); GLUCOSE, FASTING 131 MG/DL (74-106); POTASSIUM SERUM 5.3 MMOL/L (3.5-5.1); SODIUM LEVEL 138 MMOL/L (136-145); TOTAL PROTEIN 4.8 G/DL (5.7-8.2)
[2024-05-17] MEDS: PATIROMER SORBITEX CALCIUM 8.4 GM POWDER PACKET (VELTASSA) PO ONE (10:43)
[2024-05-17 12:00] VITALS: BP 114/56; TEMP 98.4; O2SAT 99
[2024-05-17 20:22] VITALS: BP 116/65; TEMP 97.7; O2SAT 98
[2024-05-18 04:22] VITALS: BP 117/61; TEMP 97.9; O2SAT 98
[2024-05-18 12:00] VITALS: BP 125/61; TEMP 97.7; O2SAT 97
[2024-05-18 20:21] VITALS: BP 123/58; TEMP 98.1; O2SAT 97
[2024-05-19 03:59] VITALS: BP 124/56; TEMP 97.3; O2SAT 98
[2024-05-19 05:49] LABS: FREE T4 1.73 NG/DL (0.89-1.76); THYROID STIMULATING HORMONE 0.211 uIU/ML (0.55-4.78)
[2024-05-19 08:30] VITALS: O2SAT 95
[2024-05-19 11:40] LABS: BLOOD UREA NITROGEN 41 MG/DL (9-23); CALCIUM LEVEL 9.6 MG/DL (8.3-10.6); CARBON DIOXIDE LEVEL 27 MMOL/L (20-31); CHLORIDE LEVEL 100 MMOL/L (98-107); CREATININE FOR GFR 0.82 MG/DL (0.55-1.30); GLOMERULAR FILTRATION RATE > 60.0 (>32); GLUCOSE, FASTING 161 MG/DL (74-106); POTASSIUM SERUM 5.1 MMOL/L (3.5-5.1); SODIUM LEVEL 135 MMOL/L (136-145)
[2024-05-19 12:00] VITALS: BP 121/56; TEMP 97.9; O2SAT 93
[2024-05-19 15:02] LABS: THRYOGLOBULIN ANTIBODIES (ATA) < 1 IU/mL (< or = 1); THYROGLOBULIN QUANTITATIVE 0.5 ng/mL (2.8-40.9)
[2024-05-19 19:49] VITALS: BP 119/54; TEMP 97.2; O2SAT 94
[2024-05-20 04:08] VITALS: BP 137/66; TEMP 97.7; O2SAT 96
[2024-05-20 05:23] LABS: HEMATOCRIT 34.6 % (36.0-47.0); HEMOGLOBIN 11.3 g/dl (12.0-15.5); MEAN CORPUSCULAR HEMOGLOBIN 29.4 pg (27.0-33.0); MEAN CORPUSCULAR HGB CONC 32.7 g/dl (32.0-36.5); MEAN CORPUSCULAR VOLUME 90.1 fl (80.0-96.0); PLATELET COUNT, AUTOMATED 249 10^3/uL (150-450); RED BLOOD COUNT 3.84 10^6/uL (4.00-5.40); WHITE BLOOD COUNT 18.3 10^3/uL (4.0-10.0)
[2024-05-20 05:37] LABS: ANISOCYTOSIS 1+; ATYPICAL LYMPH 4 % (0-5); LYMPHOCYTES 5 % (16-44); MONOCYTES 6 % (0-5); MYELOCYTES 2 % (0-0); NEUTROPHILS 82 % (28-66); PLATELET ESTIMATE NORMAL (NORMAL)
[2024-05-20 05:38] LABS: POIKILOCYTOSIS 1+
[2024-05-20 05:49] LABS: BLOOD UREA NITROGEN 36 MG/DL (9-23); CALCIUM LEVEL 9.1 MG/DL (8.3-10.6); CARBON DIOXIDE LEVEL 27 MMOL/L (20-31); CHLORIDE LEVEL 101 MMOL/L (98-107); CREATININE FOR GFR 0.79 MG/DL (0.55-1.30); GLOMERULAR FILTRATION RATE > 60.0 (>32); GLUCOSE, FASTING 118 MG/DL (74-106); MAGNESIUM LEVEL 1.7 MG/DL (1.8-2.4); POTASSIUM SERUM 4.7 MMOL/L (3.5-5.1); SODIUM LEVEL 136 MMOL/L (136-145)
[2024-05-20 08:01] VITALS: BP 131/63
[2024-05-20] MEDS: MAGNESIUM OXIDE 400MG TAB (MAG-OX) PO ONE (08:01)
[2024-05-20] MEDS: BISACODYL 10MG SUPP PR ONE (09:06)
[2024-05-20] MEDS ORDERED: PRED10TA2 PO (12:03)
[2024-05-20 12:10] VITALS: BP 129/60; TEMP 97.5; O2SAT 95
[2024-05-20] MEDS ORDERED: LEVO88TA3 PO (12:10)
[2024-05-21 18:01] LABS: THYROID STIMULATING IMMUNOGLOB < 89 % baseline (<140)
[2024-05-22] MEDS ORDERED: predniSONE 50 MG TAB PO SCH (09:00)
[2024-05-25 03:08] LABS: THYROID BINDING GLOBULIN 9.2 mcg/mL (13.5-30.9)
[2024-05-29] MEDS ORDERED: predniSONE 20 MG TAB PO SCH (09:00)
[2024-06-05] MEDS ORDERED: predniSONE 10MG TAB PO SCH (09:00)
[2024-06-12] MEDS ORDERED: predniSONE 20 MG TAB PO SCH (09:00)
[2024-06-19] MEDS ORDERED: predniSONE 10MG TAB PO SCH (09:00)
== END 2024-05-20 14:00 | DRG 205 ==
LOC: M ED 08:21 → EDBD 08:21 → M ED INP 12:24 → M PCU 17:07 → M MSPAV 05-15 21:23
PROVIDERS: ADMIT Student in an Organized Health Care Education/Training Program; ATTEND Internal Medicine
DX: J70.0 Acute pulmonary manifestations due to radiation (principal); J96.21 Acute and chronic respiratory failure with hypoxia; C45.0 Mesothelioma of pleura; E87.1 Hypo-osmolality and hyponatremia; N39.0 Urinary tract infection, site not specified; I50.32 Chronic diastolic (congestive) heart failure; H91.93 Unspecified hearing loss, bilateral; H93.13 Tinnitus, bilateral; G62.9 Polyneuropathy, unspecified; I48.91 Unspecified atrial fibrillation; I11.0 Hypertensive heart disease with heart failure; K21.9 Gastro-esophageal reflux disease without esophagitis; E16.2 Hypoglycemia, unspecified; G62.0 Drug-induced polyneuropathy; R32 Unspecified urinary incontinence; J15.69 Pneumonia due to other Gram-negative bacteria; E06.4 Drug-induced thyroiditis; E83.52 Hypercalcemia; E87.5 Hyperkalemia; E03.9 Hypothyroidism, unspecified; M19.90 Unspecified osteoarthritis, unspecified site; Z86.73 Personal history of transient ischemic attack (TIA), and cerebral infarction without residual deficits; Z90.49 Acquired absence of other specified parts of digestive tract; Z79.51 Long term (current) use of inhaled steroids; Z79.01 Long term (current) use of anticoagulants; Z79.891 Long term (current) use of opiate analgesic; Z79.899 Other long term (current) drug therapy; Z79.52 Long term (current) use of systemic steroids; Z88.8 Allergy status to other drugs, medicaments and biological substances; Z99.81 Dependence on supplemental oxygen; T45.1X5A Adverse effect of antineoplastic and immunosuppressive drugs, initial encounter

== ENCOUNTER 2024-06-03 09:19 | Outpatient (RCR) | payer MEDICARE ==
[2023-09-28 14:49] VITALS: BP 142/70; O2SAT 97
[2023-10-15 16:07] VITALS: BP 150/75; O2SAT 94
[2023-10-26 13:07] LABS: BASO # 0.1 10^3/uL (0.0-0.2); BASO % 0.7 % (0.0-1.0); EOS # 0.1 10^3/uL (0.0-0.5); EOS % 0.6 % (0.0-3.0); LYMPH # 1.8 10^3/uL (1.5-5.0); LYMPH % 17.3 % (24.0-44.0); MONO # 0.9 10^3/uL (0.0-0.8); MONO % 8.6 % (2.0-8.0); NEUTROPHILS # 7.5 10^3/uL (1.5-8.5); NEUTROPHILS % 72.5 % (36.0-66.0); PLATELET COUNT, AUTOMATED 289 10^3/uL (150-450)
[2023-10-26 13:49] LABS: ALT/SGPT 15 U/L (7.0-40); AST/SGOT 19 U/L (<34); CALCIUM LEVEL 8.6 MG/DL (8.3-10.6); CARBON DIOXIDE LEVEL 34 MMOL/L (20-31); CHLORIDE LEVEL 101 MMOL/L (98-107); CREATININE FOR GFR 0.78 MG/DL (0.55-1.30); GLOMERULAR FILTRATION RATE > 60.0 (>32); POTASSIUM SERUM 4.9 MMOL/L (3.5-5.1); SODIUM LEVEL 136 MMOL/L (136-145)
[2023-10-26 13:52] LABS: FREE T4 1.65 NG/DL (0.89-1.76)
[2023-10-29 08:03] VITALS: BP 105/53; O2SAT 93
[2023-10-30 10:05] VITALS: BP 133/65; O2SAT 99
[2023-10-30] MEDS: SODIUM CHLORIDE 0.9% IV SCH (12:04)
[2023-10-30] MEDS: NIVOLUMAB IV SCH (12:04)
[2023-10-30] MEDS: IPILIMUMAB IV SCH (13:01)
[2023-10-30] MEDS: NS IV SCH (13:01)
[2023-10-30] MEDS: SODIUM CHLORIDE 0.9% INJ 10 ML SYR IV PRN (13:30)
[2023-11-13 13:10] VITALS: BP 122/69; O2SAT 97
[2023-11-13] MEDS: KCL 10MEQ/100ML SWI (KRUN) 100 ML IV ONE (13:24)
[2023-11-13] MEDS: NIVOLUMAB IV SCH (14:25)
[2023-11-13] MEDS: SODIUM CHLORIDE 0.9% IV SCH (14:25)
[2023-11-27 13:22] VITALS: BP 134/75; O2SAT 96
[2023-11-27] MEDS: NIVOLUMAB IV SCH (15:05)
[2023-11-27] MEDS: SODIUM CHLORIDE 0.9% IV SCH (15:05)
[2023-11-27] MEDS: SODIUM CHLORIDE 0.9% INJ 10 ML SYR IV PRN (15:07)
[2023-12-10 15:19] VITALS: BP 110/66; O2SAT 93
[2023-12-11 10:38] VITALS: BP 125/68; O2SAT 96
[2023-12-11] MEDS: NIVOLUMAB IV SCH (11:29)
[2023-12-11] MEDS: SODIUM CHLORIDE 0.9% IV SCH (11:29)
[2023-12-11] MEDS: IPILIMUMAB IV SCH (12:07)
[2023-12-11] MEDS: NS IV SCH (12:07)
[2023-12-11] MEDS: SODIUM CHLORIDE 0.9% INJ 10 ML SYR IV PRN (12:43)
[2023-12-25 13:37] VITALS: BP 107/75; O2SAT 90
[2024-01-16 10:45] VITALS: BP 160/70
[2024-01-16 10:51] VITALS: O2SAT 90
[2024-02-12 10:30] VITALS: BP 129/73; O2SAT 90
[2024-02-12 10:40] LABS: BASO # 0.1 10^3/uL (0.0-0.2); BASO % 0.4 % (0.0-1.0); EOS # 0.0 10^3/uL (0.0-0.5); EOS % 0.1 % (0.0-3.0); LYMPH # 0.8 10^3/uL (1.5-5.0); LYMPH % 5.0 % (24.0-44.0); MONO # 0.6 10^3/uL (0.0-0.8); MONO % 3.6 % (2.0-8.0); NEUTROPHILS # 13.0 10^3/uL (1.5-8.5); NEUTROPHILS % 85.1 % (36.0-66.0); PLATELET COUNT, AUTOMATED 148 10^3/uL (150-450)
[2024-02-12 11:07] LABS: ALT/SGPT 88.0 U/L (7.0-40); AST/SGOT 42.0 U/L (<34); CALCIUM LEVEL 8.6 MG/DL (8.3-10.6); CARBON DIOXIDE LEVEL 24.0 MMOL/L (20-31); CHLORIDE LEVEL 99.0 MMOL/L (98-107); CREATININE FOR GFR 1.29 MG/DL (0.55-1.30); GLOMERULAR FILTRATION RATE 41.7 (>32); MAGNESIUM LEVEL 1.6 MG/DL (1.8-2.4); POTASSIUM SERUM 5.8 MMOL/L (3.5-5.1); SODIUM LEVEL 128.0 MMOL/L (136-145)
[2024-02-12 11:09] LABS: FREE T4 1.53 NG/DL (0.89-1.76)
[2024-02-12] MEDS: SODIUM CHLORIDE 0.9% INJ 10 ML SYR IV PRN (11:26)
[2024-03-11 09:59] LABS: BASO # 0.1 10^3/uL (0.0-0.2); BASO % 0.6 % (0.0-1.0); EOS # 0.0 10^3/uL (0.0-0.5); EOS % 0.4 % (0.0-3.0); LYMPH # 1.4 10^3/uL (1.5-5.0); LYMPH % 18.2 % (24.0-44.0); MONO # 0.6 10^3/uL (0.0-0.8); MONO % 7.8 % (2.0-8.0); NEUTROPHILS # 5.5 10^3/uL (1.5-8.5); NEUTROPHILS % 69.6 % (36.0-66.0); PLATELET COUNT, AUTOMATED 156 10^3/uL (150-450)
[2024-03-11 10:21] VITALS: BP 108/67; O2SAT 91
[2024-03-11 10:31] LABS: ALT/SGPT 61.0 U/L (7.0-40); AST/SGOT 36.0 U/L (<34); CALCIUM LEVEL 8.8 MG/DL (8.3-10.6); CARBON DIOXIDE LEVEL 29.0 MMOL/L (20-31); CHLORIDE LEVEL 101.0 MMOL/L (98-107); CREATININE FOR GFR 1.28 MG/DL (0.55-1.30); GLOMERULAR FILTRATION RATE 42.1 (>32); POTASSIUM SERUM 4.9 MMOL/L (3.5-5.1); SODIUM LEVEL 135.0 MMOL/L (136-145)
[2024-03-11 10:47] LABS: FREE T4 1.82 NG/DL (0.89-1.76)
[2024-03-11] MEDS: SODIUM CHLORIDE 0.9% IV SCH (12:04)
[2024-03-11] MEDS: NIVOLUMAB IV SCH (12:04)
[2024-03-11] MEDS: NS IV SCH (12:48)
[2024-03-11] MEDS: IPILIMUMAB IV SCH (12:48)
[2024-03-11] MEDS: SODIUM CHLORIDE 0.9% INJ 10 ML SYR IV PRN (13:31)
[2024-04-08 10:54] LABS: BASO # 0.1 10^3/uL (0.0-0.2); BASO % 0.5 % (0.0-1.0); EOS # 0.1 10^3/uL (0.0-0.5); EOS % 0.6 % (0.0-3.0); LYMPH # 1.5 10^3/uL (1.5-5.0); LYMPH % 13.4 % (24.0-44.0); MONO # 0.8 10^3/uL (0.0-0.8); MONO % 6.9 % (2.0-8.0); NEUTROPHILS # 8.5 10^3/uL (1.5-8.5); NEUTROPHILS % 76.6 % (36.0-66.0); PLATELET COUNT, AUTOMATED 245 10^3/uL (150-450)
[2024-04-08 10:56] VITALS: BP 109/62; O2SAT 90
[2024-04-08 11:24] LABS: ALT/SGPT 64 U/L (7.0-40); AST/SGOT 68 U/L (<34); CALCIUM LEVEL 10.3 MG/DL (8.3-10.6); CARBON DIOXIDE LEVEL 33 MMOL/L (20-31); CHLORIDE LEVEL 95 MMOL/L (98-107); CREATININE FOR GFR 0.83 MG/DL (0.55-1.30); GLOMERULAR FILTRATION RATE > 60.0 (>32); POTASSIUM SERUM 4.7 MMOL/L (3.5-5.1); SODIUM LEVEL 131 MMOL/L (136-145)
[2024-04-08 11:25] LABS: FREE T4 2.0 NG/DL (0.89-1.76)
[2024-04-08 11:57] LABS: MAGNESIUM LEVEL 1.6 MG/DL (1.8-2.4)
[2024-04-08] MEDS: NIVOLUMAB IV SCH (12:13)
[2024-04-08] MEDS: SODIUM CHLORIDE 0.9% IV SCH (12:13)
[2024-04-08] MEDS: MAG SULF 1GM/100ML (MAG RUN) 100 ML IV ONE (12:47)
[2024-04-08] MEDS: SODIUM CHLORIDE 0.9% INJ 10 ML SYR IV PRN (13:49)
[2024-04-22 09:54] LABS: BASO # 0.1 10^3/uL (0.0-0.2); BASO % 0.6 % (0.0-1.0); EOS # 0.2 10^3/uL (0.0-0.5); EOS % 1.4 % (0.0-3.0); LYMPH # 1.0 10^3/uL (1.5-5.0); LYMPH % 9.8 % (24.0-44.0); MONO # 0.6 10^3/uL (0.0-0.8); MONO % 5.7 % (2.0-8.0); NEUTROPHILS # 8.6 10^3/uL (1.5-8.5); NEUTROPHILS % 80.5 % (36.0-66.0); PLATELET COUNT, AUTOMATED 208 10^3/uL (150-450)
[2024-04-22 09:55] VITALS: BP 113/72; O2SAT 88
[2024-04-22 10:28] LABS: ALT/SGPT 22.0 U/L (7.0-40); AST/SGOT 24.0 U/L (<34); CALCIUM LEVEL 9.3 MG/DL (8.3-10.6); CARBON DIOXIDE LEVEL 28.0 MMOL/L (20-31); CHLORIDE LEVEL 97.0 MMOL/L (98-107); CREATININE FOR GFR 1.09 MG/DL (0.55-1.30); GLOMERULAR FILTRATION RATE 50.7 (>32); POTASSIUM SERUM 4.6 MMOL/L (3.5-5.1); SODIUM LEVEL 134.0 MMOL/L (136-145)
[2024-04-22] MEDS: MAG SULF 1GM/100ML (MAG RUN) 100 ML IV ONE (10:36)
[2024-04-22] MEDS: NS 50 ML IV PRN (10:37)
[2024-04-22 10:55] LABS: FREE T4 2.08 NG/DL (0.89-1.76)
[2024-04-22] MEDS: SODIUM CHLORIDE 0.9% IV SCH (12:17)
[2024-04-22] MEDS: NIVOLUMAB IV SCH (12:17)
[2024-04-22] MEDS: IPILIMUMAB IV SCH (12:50)
[2024-04-22] MEDS: NS IV SCH (12:50)
[2024-04-22] MEDS: SODIUM CHLORIDE 0.9% INJ 10 ML SYR IV PRN (13:22)
[2024-05-06 10:04] VITALS: BP 103/62; O2SAT 88
[2024-05-06 10:04] LABS: BASO # 0.1 10^3/uL (0.0-0.2); BASO % 0.6 % (0.0-1.0); EOS # 0.0 10^3/uL (0.0-0.5); EOS % 0.2 % (0.0-3.0); LYMPH # 1.2 10^3/uL (1.5-5.0); LYMPH % 9.6 % (24.0-44.0); MONO # 1.0 10^3/uL (0.0-0.8); MONO % 7.5 % (2.0-8.0); NEUTROPHILS # 10.2 10^3/uL (1.5-8.5); NEUTROPHILS % 80.7 % (36.0-66.0); PLATELET COUNT, AUTOMATED 233 10^3/uL (150-450)
[2024-05-06 10:53] LABS: FREE T4 2.95 NG/DL (0.89-1.76)
[2024-05-06 11:02] LABS: ALT/SGPT 20.0 U/L (7.0-40); AST/SGOT 37.0 U/L (<34); CALCIUM LEVEL 10.5 MG/DL (8.3-10.6); CARBON DIOXIDE LEVEL 28.0 MMOL/L (20-31); CHLORIDE LEVEL 92.0 MMOL/L (98-107); CREATININE FOR GFR 1.01 MG/DL (0.55-1.30); GLOMERULAR FILTRATION RATE 55.3 (>32); POTASSIUM SERUM 4.6 MMOL/L (3.5-5.1); SODIUM LEVEL 127.0 MMOL/L (136-145)
[2024-05-06] MEDS: MAG SULF 1GM/100ML (MAG RUN) 100 ML IV ONE (11:38)
[2024-05-06] MEDS: NIVOLUMAB IV SCH (12:42)
[2024-05-06] MEDS: SODIUM CHLORIDE 0.9% IV SCH (12:42)
[2024-05-06] MEDS: SODIUM CHLORIDE 0.9% INJ 10 ML SYR IV PRN (13:16)
[~2024-06-03] VITALS: Ht 152.4 cm; Wt 65.9 kg
[~2024-06-03 09:19] MED LIST changes: -AMIO200T49 PO; +AMIO200T54 PO; +IPILIMUMAB IV SCH; +NS 50 ML IV PRN; +NS IV SCH; -PROC5TAB57 PO; +PROC5TAB81 PO; +SODIUM CHLORIDE 0.9% INJ 10 ML SYR IV PRN
[2024-06-03 09:57] LABS: BASO # 0.0 10^3/uL (0.0-0.2); BASO % 0.2 % (0.0-1.0); EOS # 0.0 10^3/uL (0.0-0.5); EOS % 0.2 % (0.0-3.0); LYMPH # 0.5 10^3/uL (1.5-5.0); LYMPH % 4.1 % (24.0-44.0); MONO # 0.7 10^3/uL (0.0-0.8); MONO % 5.3 % (2.0-8.0); NEUTROPHILS # 10.9 10^3/uL (1.5-8.5); NEUTROPHILS % 84.0 % (36.0-66.0); PLATELET COUNT, AUTOMATED 136 10^3/uL (150-450)
[2024-06-03 10:24] VITALS: BP 119/73; O2SAT 96
[2024-06-03 10:25] LABS: ALT/SGPT 119 U/L (7.0-40); AST/SGOT 35 U/L (<34); CALCIUM LEVEL 8.4 MG/DL (8.3-10.6); CARBON DIOXIDE LEVEL 28 MMOL/L (20-31); CHLORIDE LEVEL 99 MMOL/L (98-107); CREATININE FOR GFR 0.72 MG/DL (0.55-1.30); GLOMERULAR FILTRATION RATE > 60.0 (>32); MAGNESIUM LEVEL 1.7 MG/DL (1.8-2.4); POTASSIUM SERUM 5.1 MMOL/L (3.5-5.1); SODIUM LEVEL 133 MMOL/L (136-145)
[2024-06-03 10:34] LABS: FREE T4 1.72 NG/DL (0.89-1.76)
[2024-07-01] MEDS ORDERED: SODIUM CHLORIDE 0.9% INJ 10 ML SYR IV PRN (08:00)
[2024-07-03] MEDS ORDERED: SODIUM CHLORIDE 0.9% INJ 10 ML SYR IV PRN (08:00)
== END 2025-01-22 | disposition expired ==
LOC: M ONCM 09:19
PROVIDERS: ATTEND Internal Medicine Hematology & Oncology
DX: Z51.12 Encounter for antineoplastic immunotherapy (principal); C45.0 Mesothelioma of pleura; M89.9 Disorder of bone, unspecified; Z99.81 Dependence on supplemental oxygen; S72.011D Unspecified intracapsular fracture of right femur, subsequent encounter for closed fracture with routine healing; I48.91 Unspecified atrial fibrillation; I10 Essential (primary) hypertension; E03.9 Hypothyroidism, unspecified; Z86.73 Personal history of transient ischemic attack (TIA), and cerebral infarction without residual deficits; Z79.01 Long term (current) use of anticoagulants; Z79.890 Hormone replacement therapy; Z79.82 Long term (current) use of aspirin; Z79.899 Other long term (current) drug therapy; E83.42 Hypomagnesemia; J84.9 Interstitial pulmonary disease, unspecified; Z79.52 Long term (current) use of systemic steroids; R52 Pain, unspecified; R11.2 Nausea with vomiting, unspecified; R63.0 Anorexia; J94.9 Pleural condition, unspecified; R91.8 Other nonspecific abnormal finding of lung field
CPT/HCPCS: 36415; 36591; 80053; 83735; 84439; 84443; 84481; 85025; 85610; 94010; 94761; 96367; 96413; 96417; G0463; J1642; J3475; J9228; J9299

== ENCOUNTER → 2024-06-03 | Outpatient (REF) ==
[~2024-06-03] MED LIST changes: +LEVO88TA3 PO
[2024-06-03 12:35] LABS: HEMATOCRIT 34.7 % (36.0-47.0); HEMOGLOBIN 11.6 g/dl (12.0-15.5); MEAN CORPUSCULAR HEMOGLOBIN 29.8 pg (27.0-33.0); MEAN CORPUSCULAR HGB CONC 33.4 g/dl (32.0-36.5); MEAN CORPUSCULAR VOLUME 89.2 fl (80.0-96.0); PLATELET COUNT, AUTOMATED 120 10^3/uL (150-450); RED BLOOD COUNT 3.89 10^6/uL (4.00-5.40)
[2024-06-03 13:01] LABS: ALBUMIN 2.5 G/DL (3.2-5.2); ALKALINE PHOSPHATASE 34 U/L (35-104); ALT/SGPT 114 U/L (7.0-40); AST/SGOT 33 U/L (<34); BILIRUBIN,TOTAL 0.6 MG/DL (0.3-1.2); BLOOD UREA NITROGEN 41 MG/DL (9-23); CALCIUM LEVEL 8.4 MG/DL (8.3-10.6); CARBON DIOXIDE LEVEL 26 MMOL/L (20-31); CHLORIDE LEVEL 98 MMOL/L (98-107); CREATININE FOR GFR 0.71 MG/DL (0.55-1.30); GLOMERULAR FILTRATION RATE > 60.0 (>32); GLUCOSE, FASTING 206 MG/DL (74-106); POTASSIUM SERUM 5.2 MMOL/L (3.5-5.1); SODIUM LEVEL 132 MMOL/L (136-145); TOTAL PROTEIN 4.7 G/DL (5.7-8.2)
== END ==
LOC: SKLAB2 10:41
PROVIDERS: ATTEND Internal Medicine
DX: I50.9 Heart failure, unspecified (principal)

== ENCOUNTER → 2024-06-04 | Outpatient (REF) | payer MEDICARE ==
[~2024-06-04] MED LIST changes: +AMIO200T49 PO; -AMIO200T54 PO; -IPILIMUMAB IV SCH; -NS 50 ML IV PRN; -NS IV SCH; +PROC5TAB57 PO; -PROC5TAB81 PO; -SODIUM CHLORIDE 0.9% INJ 10 ML SYR IV PRN
== END ==
LOC: M RAD 09:46 → EDSTATUS 06-05 09:26
PROVIDERS: ATTEND Physician Assistant
DX: Z00.00 Encounter for general adult medical examination without abnormal findings (principal)

== ENCOUNTER → 2024-06-10 | Outpatient (REF) ==
[2024-06-10 10:18] LABS: HEMATOCRIT 40.3 % (36.0-47.0); HEMOGLOBIN 13.1 g/dl (12.0-15.5); MEAN CORPUSCULAR HEMOGLOBIN 29.4 pg (27.0-33.0); MEAN CORPUSCULAR HGB CONC 32.5 g/dl (32.0-36.5); MEAN CORPUSCULAR VOLUME 90.6 fl (80.0-96.0); PLATELET COUNT, AUTOMATED 140 10^3/uL (150-450); RED BLOOD COUNT 4.45 10^6/uL (4.00-5.40); WHITE BLOOD COUNT 10.4 10^3/uL (4.0-10.0)
[2024-06-10 10:45] LABS: BLOOD UREA NITROGEN 40 MG/DL (9-23); CALCIUM LEVEL 8.6 MG/DL (8.3-10.6); CARBON DIOXIDE LEVEL 26 MMOL/L (20-31); CHLORIDE LEVEL 101 MMOL/L (98-107); CREATININE FOR GFR 0.86 MG/DL (0.55-1.30); GLOMERULAR FILTRATION RATE > 60.0 (>32); GLUCOSE, FASTING 144 MG/DL (74-106); POTASSIUM SERUM 4.7 MMOL/L (3.5-5.1); SODIUM LEVEL 135 MMOL/L (136-145)
== END ==
LOC: SKLAB2 09:13
PROVIDERS: ATTEND Internal Medicine
DX: I50.9 Heart failure, unspecified (principal)